=== PATIENT | female | born 1970 | race African-American/Black ===

== ENCOUNTER 2017-11-04 12:22 | Observation (INO) ==
[2017-11-04 13:25] LABS: Basophils % 0.5 % (0.0-0.8); Eosinophils # 0.2 10*3/uL (0.0-0.87); Eosinophils % 1.9 % (0.00-10.9); Hematocrit 41.3 VOL% (35.7-47.0); Hemoglobin 12.8 GM/DL (12.0-16.0); Immature Granulocytes % 0.3 %; Immature Granulocytes Absolute 0.03 #; Lymphocytes # 1.6 10*3/uL (1.4-4.0); Mean Corpuscular Hemoglobin 24 PG (27-34); Mean Corpuscular Volume 77.8 FL (87-102); Monocytes # 0.6 10*3/uL (0.11-0.8); Monocytes % 7.1 % (1.7-12.7); Neutrophils # 6.2 10*3/uL (1.4-7.4); Neutrophils % 71.2 % (38.7-73.9); Platelet Count 137 T/CUMM (130-400); Red Blood Count 5.31 MC/CUMM (3.8-5.5); Red Cell Distribution Width 19.7 % (9.3-17.3); White Blood Count 8.6 T/CUMM (4-12)
[2017-11-04 13:31] LABS: PT Patient Result 10.7 SECS
[2017-11-04 13:46] LABS: Albumin 3.5 G/DL (3.4-5.0); Bilirubin,Total 0.4 MG/DL (0.2-1.0); Calcium 9.1 MG/DL (8.5-10.1); Osmolality,Calculated 266.8 MOS/KG (273-304); Potassium 5.4 MMOL/L (3.5-5.1); Total Protein 7.4 G/DL (6.4-8.3)
[2017-11-04] MEDS ORDERED: BUPIVACAINE 0.5% /EPI 10 ML VIAL ONE (14:34)
[2017-11-04] MEDS ORDERED: LIDOCAINE 1%/EPI INJ 20 ML VIAL ONE (14:34)
[2017-11-04] MEDS ORDERED: HEPARIN 5,000 UNIT/1 ML VIAL ONE (14:34)
[2017-11-04] MEDS ORDERED: hydrALAZINE 20 MG/1 ML VIAL ONE ×2 (15:26→15:32)
[2017-11-04] MEDS ORDERED: hydrALAZINE 20 MG/1 ML VIAL IV ONE (15:28)
[2017-11-04] MEDS ORDERED: PROPOFOL 200 MG/20 ML VIAL IV ONE (15:32)
[2017-11-04] MEDS ORDERED: MIDAZOLAM 2 MG/2 ML VIAL ONE (15:32)
[2017-11-04] MEDS ORDERED: fentaNYL 100 MCG/2 ML VIAL ONE (15:32)
[2017-11-04 16:53] LABS: ABG HCO3 24.8 MMOL/L (20-26); ABG PCO2 33.2 MM HG (35-48); ABG PH 7.491 (7.35-7.45); ABG PO2 109.3 MM HG (80-95); ABG TCO2 25.8 MMOL/L (23-27)
[2017-11-04 17:04] LABS: Basophils % 0.5 % (0.0-0.8); Eosinophils # 0.1 10*3/uL (0.0-0.87); Eosinophils % 1.6 % (0.00-10.9); Hemoglobin 13.8 GM/DL (12.0-16.0); Immature Granulocytes % 0.7 %; Immature Granulocytes Absolute 0.06 #; Lymphocytes # 2.2 10*3/uL (1.4-4.0); Lymphocytes % 24.8 % (21.3-54.2); Mean Corpuscular HGB Conc 31.4 GM/DL (32-36); Mean Corpuscular Hemoglobin 24 PG (27-34); Mean Corpuscular Volume 77.2 FL (87-102); Monocytes # 0.6 10*3/uL (0.11-0.8); Monocytes % 6.7 % (1.7-12.7); Neutrophils # 5.8 10*3/uL (1.4-7.4); Neutrophils % 65.7 % (38.7-73.9); Platelet Count 150 T/CUMM (130-400); Red Cell Distribution Width 19.7 % (9.3-17.3); White Blood Count 8.9 T/CUMM (4-12)
[2017-11-04 17:19] LABS: Alanine Aminotransferase 13 U/L (13-56); Albumin 3.3 G/DL (3.4-5.0); Alkaline Phosphatase 209 U/L (45-117); Aspartate Amino Transferase 17 U/L (0-37); Blood Urea Nitrogen 31 MG/DL (7-18); Calcium 9.5 MG/DL (8.5-10.1); Glucose 91 MG/DL (74-106); Osmolality,Calculated 266.8 MOS/KG (273-304); Potassium 4.7 MMOL/L (3.5-5.1); Sodium 130 MMOL/L (136-145); Total Protein 7.7 G/DL (6.4-8.3); Troponin I Only < 0.015 NG/ML (0.00-0.045)
[2017-11-04] MEDS ORDERED: PROMETHAZINE 25 MG TABLET PO PRN (19:16)
[2017-11-04] MEDS ORDERED: MAGNESIUM HYDROXIDE SUSP 30 ML UDCUP PO PRN (19:16)
[2017-11-04] MEDS ORDERED: PROMETHAZINE 12.5 MG SUPP RECTAL PRN (19:16)
[2017-11-04] MEDS ORDERED: ACETAMINOPHEN 325 MG TABLET PO PRN (19:16)
[2017-11-04] MEDS ORDERED: BISACODYL 5 MG TABLET PO PRN (19:16)
[2017-11-04] MEDS ORDERED: PROMETHAZINE 25 MG/1 ML VIAL IM PRN (19:16)
[2017-11-04] MEDS ORDERED: ONDANSETRON 4 MG/2 ML VIAL IV PRN (19:16)
[2017-11-04] MEDS ORDERED: LABETALOL 20 MG/4 ML SYRINGE IV PRN (19:21)
[2017-11-04] MEDS: traMADol 50 MG TABLET PO PRN (20:09)
[2017-11-05] MEDS: traMADol 50 MG TABLET PO PRN (05:15)
[2017-11-05] MEDS ORDERED: amLODIPine 5 MG TABLET PO SCH (09:00)
[2017-11-05] MEDS ORDERED: LOSARTAN 50 MG TABLET PO SCH (09:00)
[2017-11-05 12:08] VITALS: BP 167/101
== END 2017-11-05 13:00 | disposition home or self-care (01) ==
LOC: EDBD → EDUNIT# → N.ED 12:22 → N.EDINP 12:22 → N.3E 14:50
PROVIDERS: ADMIT Internal Medicine Nephrology; ATTEND Internal Medicine Nephrology

== ENCOUNTER 2019-01-08 01:48 | Observation (INO) ==
[2019-01-08] MEDS ORDERED: hydrALAZINE 20 MG/1 ML VIAL IV STA (02:58)
[2019-01-08 06:25] VITALS: BP 210/121
[2019-01-08] MEDS ORDERED: hydrALAZINE 20 MG/1 ML VIAL IV ONE ×2 (06:38→08:04)
[2019-01-08] MEDS ORDERED: NITROGLYCERIN DRIP 50 MG/250 ML BOTTLE IV PRN ×2 (06:39→07:35)
[2019-01-08] MEDS ORDERED: ACETAMINOPHEN 325 MG TABLET PO PRN (07:35)
[2019-01-08] MEDS ORDERED: DOCUSATE SODIUM 100 MG CAPSULE PO PRN (07:35)
[2019-01-08] MEDS ORDERED: ONDANSETRON 4 MG/2 ML VIAL IV PRN (07:35)
[2019-01-08] MEDS ORDERED: ALBUTEROL 2.5 MG/3 ML NEB RESP TX PRN (07:35)
[2019-01-08 08:00] LABS: Basophils % 0.3 % (0.0-0.8); Eosinophils # 0.1 10*3/uL (0.0-0.87); Eosinophils % 0.6 % (0.00-10.9); Hematocrit 36.1 VOL% (35.7-47.0); Hemoglobin 10.9 GM/DL (12.0-16.0); Immature Granulocytes % 0.5 %; Immature Granulocytes Absolute 0.06 #; Lymphocytes # 1.3 10*3/uL (1.4-4.0); Lymphocytes % 12.2 % (21.3-54.2); Mean Corpuscular HGB Conc 30.2 GM/DL (32-36); Mean Corpuscular Volume 78.6 FL (87-102); Mean Platelet Volume 10.4 FL (9.6-12.0); Monocytes % 7.1 % (1.7-12.7); Neutrophils % 79.3 % (38.7-73.9); Platelet Count 129 T/CUMM (130-400); Red Blood Count 4.59 MC/CUMM (3.8-5.5); Red Cell Distribution Width 20.1 % (9.3-17.3); White Blood Count 10.9 T/CUMM (4-12)
[2019-01-08 08:17] LABS: Hypochromasia 1+; Platelet Estimate Normal
[2019-01-08 08:39] LABS: Albumin 3.6 G/DL (3.4-5.0); Bilirubin,Total 0.9 MG/DL (0.2-1.0); Calcium 9.9 MG/DL (8.5-10.1); Osmolality,Calculated 277.7 MOS/KG (273-304); Total Protein 7.1 G/DL (6.4-8.3)
[2019-01-08] MEDS: HEPARIN 5,000 UNIT/1 ML VIAL SUBCUT SCH ×3 (10:21→23:06)
[2019-01-08] MEDS: GABAPENTIN 100 MG CAPSULE PO SCH ×2 (14:38→21:59)
[2019-01-08] MEDS: cloNIDine 0.1 MG TABLET PO SCH (14:39)
[2019-01-08] MEDS: hydrALAZINE 20 MG/1 ML VIAL IV PRN ×2 (14:39→23:46)
[2019-01-08] MEDS ORDERED: METOPROLOL TARTRATE 5 MG/5 ML VIAL IV ONE (15:09)
[2019-01-09 03:51] LABS: Basophils % 0.4 % (0.0-0.8); Eosinophils # 0.1 10*3/uL (0.0-0.87); Eosinophils % 0.6 % (0.00-10.9); Hematocrit 34.6 VOL% (35.7-47.0); Hemoglobin 10.6 GM/DL (12.0-16.0); Immature Granulocytes % 0.2 %; Immature Granulocytes Absolute 0.02 #; Lymphocytes # 1.2 10*3/uL (1.4-4.0); Lymphocytes % 14.6 % (21.3-54.2); Mean Corpuscular HGB Conc 30.6 GM/DL (32-36); Mean Corpuscular Volume 79.2 FL (87-102); Mean Platelet Volume 11.2 FL (9.6-12.0); Monocytes % 9.7 % (1.7-12.7); Neutrophils % 74.5 % (38.7-73.9); Platelet Count 114 T/CUMM (130-400); Red Blood Count 4.37 MC/CUMM (3.8-5.5); Red Cell Distribution Width 19.9 % (9.3-17.3)
[2019-01-09 04:13] LABS: Calcium 9.3 MG/DL (8.5-10.1); Osmolality,Calculated 280.1 MOS/KG (273-304)
[2019-01-09 04:24] LABS: Hypochromasia 1+; Platelet Estimate Decreased
[2019-01-09] MEDS: HEPARIN 5,000 UNIT/1 ML VIAL SUBCUT SCH (07:48)
[2019-01-09] MEDS: cloNIDine 0.1 MG TABLET PO SCH (08:03)
[2019-01-09] MEDS: GABAPENTIN 100 MG CAPSULE PO SCH (08:03)
== END 2019-01-09 12:17 | disposition home or self-care (01) ==
LOC: EDUNIT# → EDBD → N.ED 01:48 → N.EDINP 01:48 → SUATTDRO 04:16 → N.ICU 04:59
PROVIDERS: ADMIT Family Medicine; ATTEND Internal Medicine Nephrology